=== PATIENT | female | born 1970 | race Caucasian/White ===

== ENCOUNTER 2018-09-05 10:17 | Outpatient (CLI) | payer BC ==
--- NOTE | 2018-09-05 11:32 | ULT ---
FExam: Transabdominal and endovaginal pelvic ultrasound HISTORY: Ovarian cyst Comparison none TECHNIQUE: Grayscale, color flow, Doppler wave form with regards to the ovaries. Pelvis is evaluated with transabdominal and endovaginal imaging FINDINGS: Surgically absent uterus No fluid in the left or right adnexa Left ovary has a normal echotexture measuring 1.4 x 2.5 x 1.2 cm. Right ovary has a normal echotextur e measuring 1.2 x 1.5 x 1.4 cm. Ovarian Doppler: Vascular flow to both ovaries IMPRESSION: 1. No evidence of a cyst in the left or right ovary. 2. Vascular flow to both ovaries.
== END 2018-09-05 10:18 | disposition home or self-care (01) ==
LOC: SCSULT 10:17
PROVIDERS: ATTEND Family Medicine
DX: R10.2 Pelvic and perineal pain (principal)
CPT/HCPCS: 76856